=== PATIENT | female | born 1995 | race Hispanic/Latino ===

== ENCOUNTER 2019-01-29 19:19 | Inpatient (IN) | payer OTHER ==
[2019-01-29] MEDS ORDERED: Ondansetron PF 4 MG/2 ML Vial IVP PRN ×2 (19:22→21:46)
[2019-01-29] MEDS ORDERED: hydrALAZINE 20 MG/ML VIAL SLOW IVP PRN (19:22)
[2019-01-29] MEDS ORDERED: Promethazine HCl 25 MG/ML VIAL IM PRN ×2 (19:22→21:46)
[2019-01-29] MEDS ORDERED: Bicitra 30 ML UDCUP PO SCH (19:30)
[2019-01-29] MEDS ORDERED: CEFAZOLIN 2 GM in Premix Bag 1 BAG IVPB SCH (19:30)
--- NOTE | 2019-01-29 19:30 | PDOC.LDHP ---
Labor and Delivery H&P HPI: 23 y/o at 38 and 3/7 weeks with EDC of 02/09/19, presents today for new clinical diagnosis of mild preeclampsia, and suspected macrosomia, with extremely unfavorable cervix, and declined induction of of labor. Patient has elected to have primary for the above reasons. Her poor family history of failed vaginal deliveries in her mother and sister (family genetics) , and my unfavorable cervical exam today support this decision, as well as size and new diagnosis of preeclampsia. Current gestational age (weeks): 38 Due date: 02/09/19 Grav: 1 Para: 0 Current complications: preeclampsia without severe features Abnormal US findings: Yes ( Macrosomia suspected (10 pounds, 7 ounces)) Current medications: pre- vitamins Previous surgical history: none Social history: none - Physical Exam Vital signs reviewed and normal: yes General: NAD Heart: RRR Lungs: CTAB Abdomen: gravid Extremeties: no edema FHT: category 1 - Vaginal Exam cm dilated: 0 Effacement: 0% Station: -3
[2019-01-29 20:12] LABS: Hemoglobin 12.8 g/dL (12.0-16.0); Mean Corpuscular HGB CONC 34.8 g/dL (32.0-36.0); Mean Corpuscular Hemoglobin 30.4 pg (27.0-31.0); Mean Corpuscular Volume 87.6 fL (78.0-98.0); Mean Platelet Volume 10.3 fL (7.4-10.4); Platelet Count 153 thou/uL (130-400); RBC Distribution Width 11.9 % (11.5-14.5); White Blood Cell (WBC) Count 11.8 thou/uL (4.8-10.8)
[2019-01-29 20:15] VITALS: BMI 39.9
[2019-01-29] MEDS ORDERED: Misoprostol 200 MCG TAB ONE ×2 (20:26→20:27)
[2019-01-29] MEDS ORDERED: Carboprost 250 MCG/ML AMP ONE (20:27)
[2019-01-29] MEDS ORDERED: Methylergonovine 0.2 MG/ML VIAL ONE (20:28)
[2019-01-29] MEDS ORDERED: Lactated Ringer's 1,000 ML IV SCH (20:30)
[2019-01-29] MEDS ORDERED: Ondansetron PF 4 MG/2 ML Vial ONE (20:38)
[2019-01-29] MEDS ORDERED: Oxytocin 10 UNITS/ML VIAL ONE (20:38)
[2019-01-29] MEDS ORDERED: MORPHINE 5 MG/10 ML PF VIAL ONE (20:38)
[2019-01-29 20:49] LABS: ALT (SGPT) 19 U/L (8-55); AST (SGOT) 18 U/L (5-34); Albumin 3.3 g/dL (3.5-5.0); Alkaline Phosphatase 70 U/L (40-110); Anion Gap 13 mmol/L (10-20); BUN (Urea Nitrogen) 11 mg/dL (7.0-18.7); Bilirubin, Total 0.2 mg/dL (0.2-1.2); Calc. Creatinine Clearance 246 mL/min (70-130); Calcium 9.3 mg/dL (7.8-10.44); Carbon Dioxide 21 mmol/L (22-29); Chloride 105 mmol/L (98-107); Estimated GFR-MDRD Greater than 90; Globulin 2.7 g/dL (2.4-3.5); Glucose 79 mg/dL (70-105); Potassium 4.3 mmol/L (3.5-5.1); Sodium 135 mmol/L (136-145)
[2019-01-29 20:50] LABS: Syphilis Antibody Nonreactive (Nonreactive); Syphilis Antibody Index 0.08 S/CO (<1.00 Non-Reactive)
[2019-01-29] MEDS ORDERED: ePHEDrine/0.9% NaCl/PF SYRINGE 50 mg/10 ml ONE (21:02)
[2019-01-29] MEDS ORDERED: Meperidine HCl/PF 25 MG/ML VIAL SLOW IVP PRN (21:46)
[2019-01-29] MEDS ORDERED: Ondansetron HCl/PF 4 MG/2 ML Vial IVP PRN (21:46)
[2019-01-29] MEDS ORDERED: Naloxone HCl 0.4 mg/ml Vial IV PRN (21:46)
[2019-01-29] MEDS ORDERED: L&D-Morphine 4 MG/ML VIAL SLOW IVP PRN (21:46)
[2019-01-29] MEDS ORDERED: Promethazine HCl 25 MG SUPP PR PRN (21:46)
[2019-01-29] MEDS ORDERED: diphenhydrAMINE 50 MG/ML VIAL IVP PRN (21:46)
[2019-01-29] MEDS ORDERED: Naloxone HCl 0.4 mg/ml Vial IVP PRN ×2 (21:46)
[2019-01-29] MEDS ORDERED: Ketorolac Tromethamine 30 MG/ML VIAL IVP SCH (22:00)
[2019-01-29] MEDS ORDERED: Communication Order-Pharmacy FS SCH (22:00)
[2019-01-30] MEDS ORDERED: diphenhydrAMINE 25 MG CAP PO PRN (00:39)
[2019-01-30] MEDS ORDERED: Zolpidem Tartrate 5 MG TAB PO PRN (00:39)
[2019-01-30] MEDS ORDERED: Misoprostol 200 MCG TAB PR PRN (00:39)
[2019-01-30] MEDS ORDERED: Bisacodyl 10 MG SUPP PR PRN (00:39)
[2019-01-30] MEDS ORDERED: Acetaminophen 325 MG TAB PO PRN (00:39)
[2019-01-30] MEDS ORDERED: Ondansetron PF 4 MG/2 ML Vial IVP PRN (00:39)
[2019-01-30] MEDS ORDERED: hydrALAZINE 20 MG/ML VIAL SLOW IVP PRN (00:39)
[2019-01-30] MEDS ORDERED: NS / Oxytocin 40 units/1000ml 1,000 ML IV SCH (00:39)
[2019-01-30] MEDS ORDERED: Lanolin Ointment 7 GM TUBE TOP PRN (00:39)
[2019-01-30] MEDS ORDERED: Promethazine HCl 25 MG/ML VIAL IM PRN (00:39)
[2019-01-30 02:19] LABS: HBSAg Index 0.19 S/CO (0-0.99); Hep B Surf Ag Non-Reactive S/CO (NonReactive)
[2019-01-30 04:54] LABS: Hemoglobin 11.2 g/dL (12.0-16.0); Mean Corpuscular HGB CONC 33.7 g/dL (32.0-36.0); Mean Corpuscular Hemoglobin 29.5 pg (27.0-31.0); Mean Corpuscular Volume 87.8 fL (78.0-98.0); Mean Platelet Volume 10.3 fL (7.4-10.4); Platelet Count 131 thou/uL (130-400); RBC Distribution Width 11.9 % (11.5-14.5); Red Blood Cell (RBC) Count 3.79 mill/uL (4.20-5.40); White Blood Cell (WBC) Count 16.5 thou/uL (4.8-10.8)
[2019-01-30] MEDS ORDERED: Ketorolac Tromethamine 30 MG/ML VIAL IVP PRN (05:00)
[2019-01-30] MEDS ORDERED: Measles/Mumps/Rubella 10 MCG/0.5 ML VIAL SC ONE (09:00)
[2019-01-30] MEDS ORDERED: Varicella virus, LIVE 0.5 ML VIAL SC ONE (09:00)
[2019-01-30] MEDS ORDERED: Adacel (T-DAP) 0.5 ML SYRINGE IM ONE (09:00)
[2019-01-30] MEDS: Simethicone Chewable 80 MG TAB PO PRN ×2 (09:34→21:09)
[2019-01-30] MEDS: Prenatal Vitamin 1 TAB PO SCH (09:34)
[2019-01-30] MEDS: Docusate Calcium (SURFAK) 240 MG CAP PO SCH ×2 (09:34→21:10)
[2019-01-30] MEDS ORDERED: Sodium Chloride 0.9% 10 ML ONE (09:37)
[2019-01-30] MEDS ORDERED: HYDROcodone/Acetaminophen 5/325 mg Tablet PO PRN ×2 (10:00)
--- NOTE | 2019-01-30 18:01 | PDOC.PP ---
Post Progress Note Post Day #: 1 PO intake tolerated: yes Flatus: yes Ambulation: yes Vital Signs (12 hours) Temp Pulse Resp BP Pulse Ox 01/30/19 12:08 98.5 F 79 16 115/68 95 01/30/19 08:00 98.6 F 86 16 119/60 95 Weight Weight 255 lb - Physical Examination General: NAD Cardiovascular: no m/r/g, RRR Respiratory: clear to auscultation bilaterally, non-labored breathing Abdominal: + bowel sounds, lochia, no distention Extremities: negative homans (B) Skin: CS incision dry & intact, no rash Neurological: no gross focal deficits Psychiatric: A&Ox3, normal affect Result Diagrams: 01/30/19 04:14 01/29/19 20:04 Additional Labs: Post Labs Blood Type B POSITIVE 01/29/19 20:39 Hep Bs Antigen Non-Reactive S/CO (NonReactive) 01/29/19 20:03
[2019-01-30] MEDS: traMADol HCl 50 MG TAB PO PRN (21:21)
[2019-01-31] MEDS: traMADol HCl 50 MG TAB PO PRN ×2 (03:14→07:22)
--- NOTE | 2019-01-31 05:53 | PDOC.PP ---
Post Progress Note Post Day #: 2 Subjective: Doing well PO intake tolerated: yes Flatus: yes Ambulation: yes Vital Signs (12 hours) Pulse Ox 01/30/19 20:00 99 Weight Weight 255 lb BPs reviewed and are 110s/60s. Initially, BP was 138/93 on 01/29 but none since. Temps: normal on 24 HR review - Physical Examination General: NAD Abdominal: + bowel sounds, lochia, no distention, appropriately TTP Extremities: negative homans (B) Skin: CS incision dry & intact (Sutured) Neurological: no gross focal deficits Psychiatric: A&Ox3, normal affect Result Diagrams: 01/30/19 04:14 01/29/19 20:04 Additional Labs: Post Labs Blood Type B POSITIVE 01/29/19 20:39 Hep Bs Antigen Non-Reactive S/CO (NonReactive) 01/29/19 20:03 (1) delivery delivered Code(s): O82 - ENCOUNTER FOR DELIVERY WITHOUT INDICATION Status: Acute - Assessment/Plan POD2 from Primary CS...doing well. Plan: Continue in house postop care for now. No evidence ileus or other complication. Anticipate DC to home tomorrow
[2019-01-31] MEDS: Simethicone Chewable 80 MG TAB PO PRN ×2 (08:40→22:37)
[2019-01-31] MEDS: Docusate Calcium (SURFAK) 240 MG CAP PO SCH ×2 (08:40→22:37)
[2019-01-31] MEDS: Prenatal Vitamin 1 TAB PO SCH (08:40)
[2019-01-31] MEDS: Ibuprofen 800 MG TAB PO PRN ×2 (08:40→17:16)
[2019-01-31] MEDS ORDERED: Ibuprofen 800 MG TAB PO SCH (14:00)
[2019-01-31] MEDS ORDERED: FLU VACC QS2019-20(6MOS UP)/PF 60 MCG/0.5 ML SYRINGE IM ONE (21:00)
[2019-02-01] MEDS: traMADol HCl 50 MG TAB PO PRN ×2 (05:20→09:23)
[2019-02-01] MEDS: Ibuprofen 800 MG TAB PO PRN (05:20)
[2019-02-01] MEDS: Docusate Calcium (SURFAK) 240 MG CAP PO SCH (09:22)
[2019-02-01] MEDS: Prenatal Vitamin 1 TAB PO SCH (09:22)
[2019-02-01] MEDS: Simethicone Chewable 80 MG TAB PO PRN (09:22)
--- NOTE | 2019-02-01 09:34 | PDOC.PP ---
Post Progress Note Post Day #: 2 PO intake tolerated: yes Flatus: yes Ambulation: yes Vital Signs (12 hours) Temp Pulse Resp BP Pulse Ox 02/01/19 08:17 98.6 F 80 15 125/60 97 01/31/19 22:30 98.9 F 80 16 123/71 98 Weight Weight 255 lb - Physical Examination General: NAD Cardiovascular: no m/r/g, RRR Respiratory: clear to auscultation bilaterally, non-labored breathing Abdominal: + bowel sounds, lochia, no distention Extremities: negative homans (B) Skin: CS incision dry & intact, no rash Neurological: no gross focal deficits Psychiatric: A&Ox3, normal affect Result Diagrams: 01/30/19 04:14 01/29/19 20:04 Additional Labs: Post Labs Blood Type B POSITIVE 01/29/19 20:39 Hep Bs Antigen Non-Reactive S/CO (NonReactive) 01/29/19 20:03
--- NOTE | 2019-02-01 11:35 | DN ---
DATE OF PROCEDURE: 01/29/2019 TIME OF SERVICE: At 2124, Central Standard Time. PREOPERATIVE DIAGNOSES: Intrauterine at 38 weeks and 3 days with a new diagnosis in clinic of mild preeclampsia, large for gestational age fetus with an unfavorable closed un-effaced cervix. The patient was given the options of induction of labor versus primary and has decided on a section. POSTOPERATIVE DIAGNOSES: Intrauterine at 38 weeks and 3 days with a new diagnosis in clinic of mild preeclampsia, large for gestational age fetus with an unfavorable closed un-effaced cervix. The patient was given the options of induction of labor versus primary and has decided on a section. PROCEDURE PERFORMED: Primary low-transverse section. FINDINGS: Viable male weighing 4196 g or 9 pounds 4 ounces. Apgars 9 and 9. QUANTITATIVE BLOOD LOSS: 367 mL. COMPLICATIONS: None. PROCEDURE IN DETAIL: The patient presented to [facility] where she was admitted to the labor and delivery service. The patient underwent a normal and uneventful labor with normal cervical dilatation until she was found to be completely dilated. She was then allowed to push and was able to bring the baby down and delivered the baby in a vertex presentation without difficulties. Once the head delivered in occiput anterior position, the shoulders followed spontaneously along with the rest of the baby's body. Once out the baby's mouth and nose were bulb suctioned. The cord was clamped and cut and baby was handed to waiting attendants. Cord blood was collected. Gentle fundal massage was performed and the placenta delivered intact without problems. Hemostasis was assured. Quantitative blood loss was calculated. Inspection of the cervix, vaginal vault, and perineum did not reveal any lacerations needing suturing. Once again, hemostasis was within normal limits and the patient was allowed to recover in the labor and delivery room. Baby went to nursery. Job ID: [id number]
[2019-02-01 12:45] VITALS: BP 124/69; TEMP 98.3
== END 2019-02-01 14:33 | disposition home or self-care (01) | DRG 788 ==
LOC: L&D 19:19 → 3SW 01-30 01:28
PROVIDERS: ADMIT Obstetrics & Gynecology; ATTEND Obstetrics & Gynecology
PROC: 10D00Z1 Extraction of Products of Conception, Low, Open Approach (ICD-10-PCS; principal; 2019-01-29)
DX: O14.04 Mild to moderate pre-eclampsia, complicating childbirth (principal); O36.63X0 Maternal care for excessive fetal growth, third trimester, not applicable or unspecified; Z3A.38 38 weeks gestation of pregnancy; Z37.0 Single live birth
CPT/HCPCS: 36415; 51702; 80053; 83615; 85027; 86780; 86850; 86900; 86901; 87340; 90471; 90686; G0008; J0690; J1885; J2210; J2274; J2405; J2590; J3490

== ENCOUNTER 2019-04-23 00:41 | Emergency (ER) | payer OTHER ==
[2019-04-23] MEDS ORDERED: diphenhydrAMINE 50 MG/ML VIAL ONE (01:18)
[2019-04-23] MEDS ORDERED: Metoclopramide HCl 10 MG/2 ML VIAL ONE (01:18)
[2019-04-23] MEDS ORDERED: Acetaminophen 500 MG TAB ONE (01:18)
[2019-04-23] MEDS ORDERED: Ketorolac Tromethamine 30 MG/ML VIAL ONE (01:18)
== END 2019-04-23 02:45 | disposition home or self-care (01) ==
LOC: ERS 00:41
DX: G43.909 Migraine, unspecified, not intractable, without status migrainosus (principal)
CPT/HCPCS: 96361; 96374; 96375; J1200; J1885; J2765